=== PATIENT | male | born 1950 | race Caucasian/White ===

== ENCOUNTER 2017-05-10 08:37 | Emergency (ER) | payer OTHER ==
[2017-05-10 09:20] LABS: BASOPHIL % 0.5 % (0-2); PLATELET COUNT 221 x10^3mcL (130-400)
[2017-05-10 09:31] LABS: CALCIUM 8.7 mg/dL (8.5-10.1); CARBON DIOXIDE 18.6 mmol/L (21-32); CREATININE SERUM 1.4 mg/dL (0.7-1.3); POTASSIUM SERUM 4.2 mmol/L (3.5-5.1)
[2017-05-10 09:37] LABS: ALBUMIN 3.4 g/dL (3.4-5.0); BILIRUBIN TOTAL 0.6 mg/dL (0.20-1.00); PHOSPHOROUS 2.3 mg/dL (2.5-4.9); TOTAL PROTEIN, SERUM 7.2 g/dL (6.4-8.2); URIC ACID 6.5 mg/dL (3.5-7.2)
[2017-05-10 10:41] VITALS: BP 113/71
== END 2017-05-10 10:41 | disposition home or self-care (01) ==
LOC: ED 08:37
PROVIDERS: Emergency Medicine
DX: E86.0 Dehydration (principal); E11.9 Type 2 diabetes mellitus without complications; I10 Essential (primary) hypertension; Z79.84 Long term (current) use of oral hypoglycemic drugs
CPT/HCPCS: 83880; J7030; Q0092

== ENCOUNTER 2019-03-19 13:18 | Inpatient (IN) | payer OTHER ==
[~2019-03-19] VITALS: Ht 165.1 cm; Wt 69.4 kg
[2019-03-19 13:32] VITALS: Ht 165.1 cm; Wt 69.4 kg
--- NOTE | 2019-03-19 14:29 | NUR ---
PT COMES IN TO ER WITH C/O GENRALIZED WEAKNESS/DIZZINESS SINCE THIS AM AFTER BEING IN HEAT ALL DAY. PT DENIES ANY CP OR SOB. RESP EVEN AND UNLABORED, IN NAD, ON RA@99%. NO SLURRED SPEECH OR UNILATERAL FACIAL DROOP NOTED. PT DENIES ANY ABD PAIN, NO N/V/D. DENIES FEVERS/CHILLS.
[2019-03-19 14:30] LABS: BASOPHIL % 0.8 % (0-2); PLATELET COUNT 242 x10^3mcL (130-400); RED CELL DISTRIBUTION WIDTH 14.3 % (11.5-14.5)
[2019-03-19 15:05] LABS: CARBON DIOXIDE 16.9 mmol/L (21-32); CREATININE SERUM 1.7 mg/dL (0.7-1.3); POTASSIUM SERUM 4.8 mmol/L (3.5-5.1)
[2019-03-19 15:09] LABS: ALBUMIN 3.4 g/dL (3.4-5.0); BILIRUBIN TOTAL 0.41 mg/dL (0.20-1.00); PHOSPHOROUS 2.8 mg/dL (2.5-4.9); URIC ACID 6.4 mg/dL (3.5-7.2)
--- NOTE | 2019-03-19 16:32 | NUR ---
NO ACUTE CHNAGE IN CONDITON, PT IN NAD. RESP EVEN AND UNLABORED, VSS, PT LAYING ON BED AND ON MONITOR.
--- NOTE | 2019-03-19 18:07 | NUR ---
REPORT GIVEN TO NAOMY INGRAM, UPDATED ON STATUS,LABS AND VITALS.
[2019-03-19] MEDS ORDERED: ZESTRIL10 MG PO (18:16)
--- NOTE | 2019-03-19 18:50 | NUR ---
[id number], ACCOMPANIED BY RN AND TRANSPORTER. PT A/A/O X 4, CALM, COOPERATIVE. AMBULATORY, NO GAIT OR BALANCE IMPAIRMENT NOTED WALKING FROM [place] TO BED. ON TELE # 14, HR 55, SB, DENIES CHEST PAIN OR DISCOMFORT AT THIS TIME. NO ACUTE RESPIRATORY DISTRESS NOTED. IV SITE LAC 22G, CDI. ORIENTED PT TO ROOM, BED CONTROLS, CALL LIGHT SYSTEM. SIDE RAILS UP X 2, BED IN LOW POSITION. WILL ENDORSE TO NATALY DU.
--- NOTE | 2019-03-19 19:02 | NUR ---
PT TRANSPORTED TO ROOM WITH RN AND EMT,PT STABLE FOR TRANSFER. ALL BELONGINGS WITH PT. IV NS INFUSING BOLUS WELL TO LEFT AC.
[2019-03-19 19:10] VITALS: BP 120/62
--- NOTE | 2019-03-19 20:04 | NUR ---
RECEIVED PT FROM NATALY MORALEZ. PT IS ALERT AND ORIENTED X4 BULGARIAN SPEAKING AND ABLE TO FOLLOW COMMANDS. FAMILY IS CURRENTLY AT THE BEDSIDE AND ABLE TO HELP TRANSLATE IF NEEDED. PT STATES THAT HE IS HUNGRY AT THIS TIME. EDUCATED PT ON THE NEED FOR INSULIN AND PT AGREED TO TAKING HIS SCHEDULED DOSE OF LANTUS AND REGULAR INSULIN IF NEEDED. PT DENIES DIZZINESS, CHEST PAIN, OR SHORTNESS OF BREATH AT THIS TIME. THERE ARE NO USE OF ACCESSORY MUSCLES, NO KUSSMAUL RESPIRATIONS NOTED. PT IS AMBULATORY WITHOUT ASSIST. IV TO LAC 22G CURRENTLY RUNNING NS BOLUS RATE AT THIS TIME. TELE #[address] SAFETY MEASURES ARE IN PLACE. BED IS IN THE LOWEST POSITION. CALL LIGHT IS WITHIN REACH. WILL CONTINUE TO MONITOR PT.
--- NOTE | 2019-03-19 20:20 | NUR ---
PT BLOOD GLUCOSE AT THIS TIME IS 121. PT DENIES DIZZINESS, SHAKINESS, SOB. WILL PROVIDE PT WITH SNACKS CONSISTENT WITH DIET ORDER.
[2019-03-19 21:22] VITALS: BP 114/45
--- NOTE | 2019-03-20 02:03 | NUR ---
PT RESTING IN BED WITH EYES CLOSED. NO SIGNS OR SYMPTOMS OF DISTRESS NOTED. NO USE OF ACCESSORY MUSCLES OR LABORED BREATHING.
--- NOTE | 2019-03-20 05:11 | NUR ---
PT SLEPT IN INTERVALS THROUGHOUT THE SHIFT. SEEN BY DOCTOR OLSON IN AM. I WAS PRESENT DURING ASSESSMENT. PT DENIES CHEST PAIN OR SHORTNESS OF BREATH AT THIS TIME. BREATHING IS EVEN AND UNLABORED. PT DENIES DIZZINES OR HEADACHE. NO COMPLAINTS OF PAIN AT THIS TIME. NO SIGNIFICANT CHANGES NOTED THROUGHOUT THE SHIFT. SAFETY MEASURES IN PLACE. BED IN LOWEST POSITION. CALL LIGHT IS WITHIN REACH. WILL CONTINUE TO MONITOR.
[2019-03-20 05:54] VITALS: BP 109/73
[2019-03-20 06:04] LABS: PLATELET COUNT 223 x10^3mcL (130-400); RED CELL DISTRIBUTION WIDTH 14.3 % (11.5-14.5)
[2019-03-20 06:15] LABS: CALCIUM 8.2 mg/dL (8.5-10.1); CARBON DIOXIDE 21.4 mmol/L (21-32); CHLORIDE SERUM 111 mmol/L (98-107); CREATININE SERUM 1.1 mg/dL (0.7-1.3); GFR1 > 60 mL/min; GLUCOSE SERUM 132 mg/dL (74-106); MAGNESIUM 1.8 mg/dL (1.8-2.4); PHOSPHOROUS 2.9 mg/dL (2.5-4.9); POTASSIUM SERUM 4.2 mmol/L (3.5-5.1); SODIUM SERUM 142 mmol/L (136-145)
[2019-03-20 07:43] VITALS: BP 123/75
--- NOTE | 2019-03-20 08:00 | NUR ---
ALERY AND ORIENTED. GOOD APPETITE WITH BREAKFAST. DENIES ANY PAIN. HAS BEEN UP AMBULATING. BREATHING FREELY ONRA. NS INFUSING 100 CC HOUR. TELE # 14 SR. VSS. CALL [facility] WITHIN REACH.
--- NOTE | 2019-03-20 12:29 | NUR ---
Nutrition Note: As per discussion in bed huddles, patient needed DM diet education. Diabetes diet education was provided using [facility] handout on 'Type 2 Diabetes Nutrition Therapy'. Concepts like portion control, high fiber foods and avoidance of simple sugars in soda and sweets were discussed. Patient only spoke angolan therefore RN Colby helped in translation. Patient verbalized understanding and did not have any other diet related questions at this time. Patient will be assessed as moderate risk. IA due 03/23-03/25. .
[2019-03-20 12:40] VITALS: BP 120/81
[2019-03-20 13:14] LABS: microscopic required? NO
[2019-03-20 13:27] LABS: UA SPECIFIC GRAVITY <=1.005 (1.005-1.035); urine erythrocyte NEGATIVE (NEGATIVE)
--- NOTE | 2019-03-20 13:30 | NUR ---
RETURNED TELE # 14 TO TELE STATION. MED SURG PT.
[2019-03-20] MEDS ORDERED: GLIPIZIDE5 M2 PO (15:08)
[2019-03-20] MEDS ORDERED: METFORMIN HCL750 MG (15:46)
[2019-03-20] MEDS ORDERED: ACT15 PO (15:46)
[2019-03-20 15:47] VITALS: BP 120/81
[2019-03-20 16:01] LABS: AMPHETAMINE QUAL UR NONE DETECTED (See below)
[2019-03-20 16:21] VITALS: BP 132/87
--- NOTE | 2019-03-20 16:37 | NUR ---
IV DC'D TELE # 14 RETURNED TO TELE STATION. PRESCRIPTION FOR GLIPIZIDE GIVEN. F[facility]U [place] GIVEN [facility]. ALL DC INSTRUCTINS REVIEWED WITH AND SIGNED BY PT WITH MENTAL HEALTH ORDERLY AT BEDSIDE.
== END 2019-03-20 16:43 | disposition home health service (06) | DRG 637 ==
LOC: ED 13:18 → DU 15:54 → MU 03-20 13:24
PROVIDERS: Emergency Medicine; ADMIT Internal Medicine
DX: E11.65 Type 2 diabetes mellitus with hyperglycemia (principal); N17.0 Acute kidney failure with tubular necrosis; E87.2 Acidosis; I10 Essential (primary) hypertension; Z68.25 Body mass index [BMI] 25.0-25.9, adult; Z87.891 Personal history of nicotine dependence; Z79.84 Long term (current) use of oral hypoglycemic drugs
CPT/HCPCS: 36600; 82962; G0378; J1815; J7030; Q0092

== ENCOUNTER 2020-03-12 15:28 | Emergency (ER) | payer OTHER ==
[~2020-03-12] VITALS: Ht 165.1 cm; Wt 70.3 kg
[~2020-03-12 15:28] MED LIST: ACT15 PO; GLIPIZIDE5 M2 PO; METFORMIN HCL750 MG; ZESTRIL10 MG PO
[2020-03-12 17:01] VITALS: Ht 165.1 cm; Wt 70.3 kg
[2020-03-12 18:01] VITALS: BP 149/85
== END 2020-03-12 18:01 | disposition home or self-care (01) ==
LOC: ED 15:28
DX: R50.9 Fever, unspecified (principal); R09.89 Other specified symptoms and signs involving the circulatory and respiratory systems; R05 Cough; R53.83 Other fatigue; I10 Essential (primary) hypertension; E11.9 Type 2 diabetes mellitus without complications; Z20.828 Contact with and (suspected) exposure to other viral communicable diseases
CPT/HCPCS: Q0092; U0003-CS

== ENCOUNTER 2020-09-12 07:42 | Emergency (ER) | payer OTHER, SELFPAY ==
[~2020-09-12] VITALS: Ht 160 cm; Wt 72.6 kg
[2020-09-12 07:44] VITALS: Ht 160 cm; Wt 72.6 kg
[2020-09-12 12:37] VITALS: BP 125/78
== END 2020-09-12 15:06 | disposition home or self-care (01) ==
LOC: ED 07:42
DX: U07.1 COVID-19 (principal); I10 Essential (primary) hypertension; E11.9 Type 2 diabetes mellitus without complications
CPT/HCPCS: 82962; M0239; Q0239; U0003

== ENCOUNTER 2020-09-25 10:41 | Emergency (ER) | payer OTHER, SELFPAY ==
[~2020-09-25] VITALS: Ht 167.6 cm; Wt 63.5 kg
[2020-09-25 10:43] VITALS: Ht 167.6 cm; Wt 63.5 kg
[2020-09-25 12:29] LABS: PLATELET COUNT 307 x10^3mcL (152-348); RED CELL DISTRIBUTION WIDTH 13.1 % (12.1-16.2)
[2020-09-25 13:04] LABS: CARBON DIOXIDE 23.3 mmol/L (21-32); CHLORIDE SERUM 103 mmol/L (98-107); CREATININE SERUM 1.3 mg/dL (0.7-1.3); GLUCOSE SERUM 271 mg/dL (74-106); POTASSIUM SERUM 4.3 mmol/L (3.5-5.1); SODIUM SERUM 137 mmol/L (136-145)
[2020-09-25 13:09] LABS: ALBUMIN 3.6 g/dL (3.4-5.0); ALKALINE PHOSPHATASE 89 U/L (46-116); ALT/SGPT 23 U/L (16-63); AST/SGOT 10 U/L (15-37); BILIRUBIN TOTAL 0.4 mg/dL (0.20-1.00); TOTAL PROTEIN, SERUM 7.2 g/dL (6.4-8.2)
[2020-09-25 13:25] VITALS: BP 138/80
== END 2020-09-25 13:25 | disposition home or self-care (01) ==
LOC: ED 10:41
PROVIDERS: Student in an Organized Health Care Education/Training Program
DX: B34.9 Viral infection, unspecified (principal); I10 Essential (primary) hypertension; E11.9 Type 2 diabetes mellitus without complications; Z20.822 Contact with and (suspected) exposure to COVID-19